=== PATIENT | female | born 1980 | race Caucasian/White ===

== ENCOUNTER 2024-11-02 10:46 | Outpatient (REF) | payer OTHER, SELFPAY ==
[2024-11-02 14:19] LABS: Hematocrit 37.7 % (37.0-47.0); Hemoglobin 13.1 g/dl (12.0-16.0); Mean Corpuscular HGB Conc 34.7 g/dl (31.0-35.0); Mean Corpuscular Hemoglobin 30.7 pg (27.0-33.0); Mean Corpuscular Volume 88.3 fL (80.0-98.0); NRBC Abs Auto 0.000 X10*3/uL (0.0-0.012); NRBC Pct Auto 0.0 /100WBC (0.0-0.2); Platelet Count 304 X10*3/uL (160-400); Red Blood Count 4.27 X10*6/uL (4.20-5.50); White Blood Count 7.6 X10*3/uL (4.8-10.8)
[2024-11-02 15:01] LABS: Microalbum/Creatinine Ratio Ur 6.5 ug/mg cr (<30)
[2024-11-02 15:24] LABS: Alanine Aminotransferase 11 U/L (0-31); Albumin Level 4.2 g/dL (3.5-5.0); Alkaline Phosphatase 53 U/L (39-117); Anion Gap 16 (12-20); Aspartate Amino Transferase 26 U/L (5-31); Blood Urea Nitrogen 8 mg/dL (9-16); Calcium 9.2 mg/dL (8.4-10.2); Carbon Dioxide 23 mmol/L (22-29); Chloride 105 mmol/L (96-108); Cholesterol 216 mg/dL (<200); Estimated Glomerular Filt Rate > 60; HDL Cholesterol 37 mg/dL (>40); Potassium 3.8 mmol/L (3.3-5.1); Sodium 140 mmol/L (135-145); Total Protein 7.8 g/dL (6.5-8.0); Triglycerides 86 mg/dL (<150)
[2024-11-02 15:28] LABS: Ferritin 295 ng/mL (10-250)
[2024-11-02 15:31] LABS: Hemoglobin A1C 115.1377 umol/L; Total Hemoglobin (HGBA1C) 3410.8238 umol/L
[2024-11-02 15:41] LABS: Folate 6.1 ng/mL (> or = 4.0); Vitamin B12 809 pg/mL (200-900)
== END 2024-11-02 10:47 | disposition home or self-care (01) ==
LOC: HO.WFDLDS 10:46
PROVIDERS: PCP Nurse Practitioner Family; Visit Provider Nurse Practitioner Family
DX: Z00.00 Encounter for general adult medical examination without abnormal findings (principal); Z76.89 Persons encountering health services in other specified circumstances; Z78.0 Asymptomatic menopausal state; J32.8 Other chronic sinusitis; C44.91 Basal cell carcinoma of skin, unspecified; D89.0 Polyclonal hypergammaglobulinemia; Z79.85 Long-term (current) use of injectable non-insulin antidiabetic drugs
CPT/HCPCS: 36415; 80053; 80061; 82043; 82306; 82570; 82607; 82728; 82746; 82784; 83036; 84443; 85027; 86364; 96127

== ENCOUNTER 2024-11-02 10:46 | Outpatient (AMB) | payer OTHER, SELFPAY ==
--- NOTE | 2024-11-02 10:48 | A.OFFPC_ITS ---
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 Intake Note: New patient to establish care and cpe Jump Roll Operator Required: No Allergies No Known Allergies Allergy (Verified 11/02/24 11:05) Medication List - Last Reconciled 11/02/24 by LAUREN Vasquez- semaglutide (weight loss) 0.25 mg subcut QWEEK Tobacco use date assessed: 11/02/24 Dental Screening Dental Screen Date: 11/02/24 Did you have a dental visit in the last 12 months?: No Did you have a dental problem in the last 6 months where you did not have access to dental care?: No Was dental information given to patient?: No HPI HPI Comments History of Present Illness Details 43 y/o F with elevated IgA, basal cell s kin ca, chronic sinusitis, chronic constipation s/p JUAN CARLOS, rectocle Social: , works as book keeper, has a boyfriend Health Maintenance Tdap 2023 Mammo 12/2024 [facility] Colon 2010 [facility] Specialist Derm MEDIA EXECUTIVE History of Present Illness - The patient is a 43-year-old female pr [facility]enting to [facility] No records - coming from [place], last visit about 2 years ago - Reports hx of elevated Immunoglobulin A (IgA) levels. No referral or work up for this. - Chronic sinusitis with frequent sinus infections. Has sx right now. Saw ENT in the past. - Constipation with up to three weeks wi thout bowel movement. - Baseline s/p rectocele - Post-hysterectomy weight gain 50 lbs; Using Semaglutide OTC Mar 2024; 30 lbs loss. Made aware i do not RX this and she should cont to buy OTC. - Sleep disturbances with difficulties f alling and staying asleep despite tiredness. - History of basal cell carcinoma excisi on four years ago. at [facility]. Has a lesion on L forehead she wants looked at. - Had colon around 2010; got cologaurd i n mail wonders if she should use this or not. Denies fhx of colon ca; unsure about last colon results. Review of Systems - General: Denies taking any current med ications except [id number]-zlztjjr supplements. - ENT: Reports chronic sinusitis. - Gastrointestinal: Reports constipation . - Dermatological: Reports history of ski n cancer. - Neurological: Reports sleep disturbanc es. - Allergy/Immunology: Denies known aller gies. Physical Exam General: Well developed, well nourished, in no acute distress. Appears stated age. Head: Normocephalic, atraumatic. Eyes: Pupils are equal, round and reactive to light and accommodation. Conjunctivae are clear. Vision grossly normal. Ears: TM intact and clear Nares: turbinates mild edematous, pale, + congestion, no sinus tenderness w palp Pharynx: clear Lungs: Clear to auscultation bilaterally. No rales, rhonchi or wheeze noted. Good air flow in all lira. Heart: Regular rate and rhythm. No murmurs, click, rubs or gallops are noted. Psych: Mood and affect appropriate. Results Pending Discussion Notes I discussed the patient's elevated Immunoglobulin A (IgA) levels and the previous lack of specialist referral. The chronic sinusitis was reviewed, and I informed the patient about our laboratory service for drawing necessary blood tests. There was a discussion about her continued skin lesion potentially needing dermatology follow-up. I educated her on the benefits and process of colonoscopy versus Cologuard in regards to colon cancer screening. Also, we discussed current constipation, obesity issues, and the lack of impact on sleep affecting her daily life. Transitioning health insurance concerns were also addressed, ensuring continuity of care at our facility. Patient was informed about our messaging system for direct communication and encouraged to access her health records promptly. Follow-up was advised to review lab results and overall review in two weeks. Patient was given time to ask questions. All questions were answered to their satisfaction. Assessment and Plan 1. Elevated Immunoglobulin A (IgA) - Obtain blood tests for IgA. - Follow-up in two weeks for results. 2. Chronic Sinusitis - Consider ENT consult if needed. 3. Constipation - Monitor dietary intake and bowel patte rns. 4. Skin Cancer (Basal Cell Carcinoma) - Refer to dermatology. 5. Obesity and Sleep Disturbance - Encourage weight management. - Supportive management for sleep. 6. Post-Hysterectomy Status - Noted ovaries retained; cervix status unclear. 7. Colon Cancer Screening - Requested colon report from [facility], will review and provide feed back at next visit Patient Instructions - Get blood work done today before dahlia sánchez. - Contact [facility] for fo llow-up. - Use the messaging geovanny to communicate f or any questions or concerns. - Return visit in two weeks for lab resu lts review. Consent Patient was informed and verbally consented to the use of an ambient scribe for clinic note documentation during this visit. Total time spent caring for the patient today was 45 minutes. This includes time spent before the visit reviewing the chart, time spent during the visit, and time spent after the visit on documentation, reviewing laboratory results, diagnostic imaging, medications, performing a medically necessary evaluation, counseling on diagnoses, care coordination, ordering appropriate tests, ordering appropriate medications, review of tests performed by other providers, reporting test results with the patient, communication with other healthcare providers. [facility] Medical History (Updated 11/02/24 @ 11:36 by LAUREN Vasquez-SNEHA) Anxiety and depression Headache High cholesterol Hx of mammogram (~2024) IBS (irritable bowel syndrome) Shingles Surgical History (Updated 11/02/24 @ 11:36 by LAUREN Vasquez-BC) H/O rectocele repair H/O: hysterectomy (~2016) History of cholecystectomy (~2020) Hx of colonoscopy (~2015) Previous section Family History (Updated 11/02/24 @ 11:07 by Emiliana Arias MA) Mother Asthma HTN (hypertension) High cholesterol Maternal Grandmother HTN (hypertension) High cholesterol Breast cancer Father Lung cancer Social History (Updated 11/02/24 @ 10:56 by Emiliana Arias MA) Household Members: Children Both parents involved: No Caregiver staying overnight: No Housing: House Are you a primary neonatal intensive care unit nurse to a significant other at home: No Do you presently have visiting nurse or other home services: No 75 years or older and lives alone: No Alcohol intake: current Alcohol intake frequency: a few times a month Patient Tobacco Use Status: Never used Tobacco e-Cigarette/Vaping Use: Never Used Second Hand Smoke Exposure: No Current occupational status: employed Current occupation: Book keeper Cognitive needs: No Hearing needs: No Vision needs: No Questionnaire PHQ-9 Over the last 2 weeks, how often have you been bothered by any of the following problems? 1. Little interest or pleasure in doing things: not at all 2. Feeling down, depressed, or hopeless: not at all 3. Trouble falling or staying asleep, or sleeping too much: nearly every day 4. Feeling tired or having little energy: more than half the days 5. Poor appetite or overeating: several days 6. Feeling bad about yourself - or that you are a failure or have let yourself or your family down: not at all 7. Trouble concentrating on things, such as reading the newspaper or watching television: not at all 8. Moving or speaking so slowly that other people could have noticed. Or the opposite - being so fidgety or restless that you have been moving around a lot more than usual: not at all 9. Thoughts that you would be better off or of hurting yourself in some way: not at all Total score: 6 Depression Screening Interpretation: Positive Depression Screening Follow-up: Existing condition and Community Mental Health Worker F/U Depression Screening Done: Yes 01846 - PHQ-9 Billing: Yes Source: Developed by Drs. Brady Quintanilla, Eneida Cloud, Miguel Newby and colleagues, with an educational hermann from [employer]. Thrive Questionnaire Date Thrive assessed: 11/02/24 I am a: Patient What is your living situation today?: I have a steady place to live Within the past 12 months, did the food you bought not last and you didn't have the money to get more?: Never true Within the past 12 months, did you worry whether your food would run out before you got money to buy more?: Never true Do you have trouble paying for medicines?: No Do you have trouble getting transportation to medical appointments?: No Do you have trouble paying your heating and electricity bill?: No Do you have trouble taking care of your child, family member or friend?: No Do you have trouble with day-to-day activities such as bathing, preparing meals, shopping, managing finances, etc.?: No Are you currently unemployed and looking for a job?: No Are you interested in more education?: No Please select the resources that you would like help with: None Currently or been in a relationship where the following occur: No concerns reported THRIVE Score: 0 AUDIT C Alcohol Use Questionnaire (AUDIT-C) 1. How often do you have a drink containing alcohol?: Monthly or less 2. How many drinks containing alcohol do you have on a typical day when you are drinking?: 1 or 2 3. How often do you have six or more drinks on one occasion?: Never Total Score: 1 Score Reviewed/Action Taken: Yes NALLELY-7 AMB Questionnaire NALLELY-7 Date NALLELY - 7 assessed: 11/02/24 Feeling nervous, anxious, or on edge: 0 = Not at all Not being able to stop or control worryin = Not at all Worrying too much about different things: 0 = Not at all Trouble relaxin = Not at all Being so restless that it is hard to sit still: 0 = Not at all Becoming easily annoyed or irritable: 0 = Not at all Feeling afraid as if something awful might happen: 0 = Not at all Total NALLELY-7 score (0-4 normal; 5-9 mild; 10-14 moderate; 15-21 severe): 0 Source: Developed by Drs. Brady Quintanilla, Eneida Cloud, Miguel Newby and colleagues, with an educational hermann from [employer]. NALLELY-7 Assessment Billing NALLELY-7 Assessment Tool: NALLELY-7 Assessment 16219 Physical exam (Primary Care) Vital Signs: Last Vital Signs Temp 97.2 F 11/02/24 10:53 Pulse 63 11/02/24 10:53 Resp 12 11/02/24 10:53 BP 102/66 11/02/24 10:53 Pulse Ox 98 11/02/24 10:53 Oxygen Delivery Method Room Air 11/02/24 10:53 BMI result Body Mass Index 26.6 Tobacco/Smoking Status: Tobacco use Status Tobacco use date assessed 11/02/24 11/02/24 10:55 Patient Tobacco Use Status Never used Tobacco 11/02/24 10:56 e-Cigarette/Vaping Use Never Used 11/02/24 10:56 PHQ-9: PHQ-9 Score PHQ-9: Total score 6 11/02/24 10:56 Depression Screening Interpretation: Positive Depression Screening Follow-up: Existing condition and Community Mental Health Worker F/U Thrive Assessment: Date of Thrive Assessment Date Thrive assessed 11/02/24 11/02/24 10:55 Currently or been in a relationship where the following occur: No concerns reported Coding Level of Care Code New Pt Level 4 (93076) Complex EM visit Add On G2211 Diagnoses Encounter to establish care with new provider Z76.89 Other chronic sinusitis J32.8 Sinusitis location: other Basal cell carcinoma (BCC), unspecified site C44.91 Basal cell carcinoma location: unspecified site Long-term (current) use of injectable non-insulin antidiabetic drugs Z79.85 Menopause Z78.0 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 Laboratory exam ordered as part of routine general medical examination Z00.00 Additional Codes NALLELY-7 Assessment Billing - NALLELY-7 Assessment Tool: NALLELY-7 Assessment 87009 ([id number]) PHQ-9 - 81680 - PHQ-9 Billing: Yes ([id number]) Assessment & Plan Assessment & Plan (1) Encounter to establish care with new provider: Code(s): Z76.89 - Persons encountering health services in other specified circumstances (2) Chronic sinusitis: Code(s): J32.9 - Chronic sinusitis, unspecified Category: Medical Qualifiers: Sinusitis location: other Qualified Code(s): J32.8 - Other chronic sinusitis (3) Basal cell carcinoma of skin: Code(s): C44.91 - Basal cell carcinoma of skin, unspecified Category: Medical Qualifiers: Basal cell carcinoma location: unspecified site Qualified Code(s): C44.91 - Basal cell carcinoma of skin, unspecified (4) Long-term (current) use of injectable non-insulin antidiabetic drugs: Comment: using GLP 1 for wt loss buying OTC advised to cont as i dont RX this Code(s): Z79.85 - Long-term (current) use of injectable non-insulin antidiabetic drugs Category: Medical (5) Menopause: Code(s): Z78.0 - Asymptomatic menopausal state Category: Medical (6) Polyclonal hypergammaglobulinemia: Comment: IG A Code(s): D89.0 - Polyclonal hypergammaglobulinemia Category: Medical (7) Laboratory exam ordered as part of routine general medical examination: Code(s): Z00.00 - Encounter for general adult medical examination without abnormal findings Category: Medical Plan . Orders: Orders Immunoglobulins,IgG IgA IgM Today J32.9 - Chronic sinusitis, unspecified, Z00.00 - Encounter for general adult medical examination without abnormal findings, Z78.0 - Asymptomatic menopausal state Transglutaminase IgA Today J32.9 - Chronic sinusitis, unspecified, Z00.00 - Encounter for general adult medical examination without abnormal findings, Z78.0 - Asymptomatic menopausal state Ferritin Today J32.9 - Chronic sinusitis, unspecified, Z00.00 - Encounter for general adult medical examination without abnormal findings, Z78.0 - Asymptomatic menopausal state Hemoglobin A1c Today J32.9 - Chronic sinusitis, unspecified, Z00.00 - Encounter for general adult medical examination without abnormal findings, Z78.0 - Asymptomatic menopausal state Lipid Panel Today J32.9 - Chronic sinusitis, unspecified, Z00.00 - Encounter for general adult medical examination without abnormal findings, Z78.0 - Asymptomatic menopausal state Vitamin B12 and Folate Today J32.9 - Chronic sinusitis, unspecified, Z00.00 - Encounter for general adult medical examination without abnormal findings, Z78.0 - Asymptomatic menopausal state Complete Blood Count no Diff Today J32.9 - Chronic sinusitis, unspecified, Z00.00 - Encounter for general adult medical examination without abnormal findings, Z78.0 - Asymptomatic menopausal state Comprehensive Met. Panel Today J32.9 - Chronic sinusitis, unspecified, Z00.00 - Encounter for general adult medical examination without abnormal findings, Z78.0 - Asymptomatic menopausal state Microalbumin, Random (w Creat) Today J32.9 - Chronic sinusitis, unspecified, Z00.00 - Encounter for general adult medical examination without abnormal findings, Z78.0 - Asymptomatic menopausal state TSH reflex Free T4 Today J32.9 - Chronic sinusitis, unspecified, Z00.00 - Encounter for general adult medical examination without abnormal findings, Z78.0 - Asymptomatic menopausal state Vitamin D 25-OH Total Today J32.9 - Chronic sinusitis, unspecified, Z00.00 - Encounter for general adult medical examination without abnormal findings, Z78.0 - Asymptomatic menopausal state Referrals Dermatology Referral C44.91 - Basal cell carcinoma of skin, unspecified Patient Instructions: Walk-In Care (Urgent Care): We Make it Easy Walk-in for urgent medical issues such as: ? Seasonal Allergies ? Insect Bites ? Cough ? Diarrhea ? Acute Asthma Attacks ? Back, Knee or Joint Pain ? Ear Infection ? Fever without a Rash ? Headaches ? Nausea ? [place] Eye, Rash or Skin Irritation ? Sore Throat ? Sports Physicals ? Vomiting Most insurances are accepted. Patients do not need to be part of the [facility] to seek care at the walk-in clinic. Locations [address] , [place] [address] ? [phone] [facility] Walk-In Care in [place] provides services to ages 18 and over. Open Friday-Friday: 7 a.m. to 5 p.m. and Friday: 9 a.m. to 3 p.m.* *Hours may vary due to staffing availability. To confirm Walk-In Care hours in [place], please call [phone]. [address] [place] [address] ? [phone] [facility] Walk-In Care in [place] provides services to ages 12 and over. Open Friday-Friday: 8 a.m. to 5 p.m. Hours may vary due to staffing availability. To confirm Walk-In Care hours in [place], please call [phone]. LABORATORY SERVICES: [facility] Lab ? Primary Location [address] [place] [address] Friday through Friday 6:00 AM ? 5:00 PM Friday 7:00 AM ? 11:00 AM* [phone] The [facility] Lab is centrally located near the front entrance of the [facility] for easy outpatient access. Convenient parking is provided for outpatients. *Hours may vary due to staffing availability. To confirm Laboratory hours for any location, please call [phone]. Offsite Location For your convenience, we offer offsite laboratory draw stations at the following locations: [address] [place] [address] ? [facility] [address], [address] Friday through Friday 7:30 AM ? 1:00 PM* [phone] *Hours may vary due to staffing availability. To confirm Laboratory hours for any location, please call [phone]. [place] ? [address] Friday through Friday 6:00 AM ? 3:30 PM* Friday 6:30 AM ? 3 PM* [phone] *Hours may vary due to staffing availability. To confirm Laboratory hours for a [place] location, please call [phone]. [address] [facility] Friday through Friday 7:30 AM ? 4:00 PM* [phone] *Hours may vary due to staffing availability. To confirm Laboratory hours for any location, please call [phone]. [address] [facility] Friday through 9:00 AM ? 4:00 PM* *Hours may vary due to staffing availability. To confirm Laboratory hours for any location, please call [phone]. Appointments are not necessary. Walk-ins are welcome. Like all the departments throughout the [facility], our Lab undergoes frequent reviews to ensure the quality and accuracy of test results, and our staff takes special pride in its status as a nationally accredited facility. Patient Portal: [facility] ONE PATIENT. ONE RECORD. BETTER CARE. The [facility] has a fully integrated, cutting- edge mobile electronic health information system that has revolutionized the way we care for our patients and manage our organization. This system improves communication and coordination enabling us to provide safe, higher-quality care, and an overall positive experience for staff and patients. Our first priority, as always, is to deliver the highest quality care possible. The system is running in the background supporting that priority. This portal is for all [facility] and [facility] services and practices. If you are experiencing any technical difficulties with enrolling or logging into the Patient Portal please complete the [facility] Patient Portal Technical Support Form. [facility] and [facility] now offers a new secure on-line interactive tool for patients to review their health information ? ?Patient Portal. This interactive web portal will enable patients and their families to take an active role in their care by providing easy, secure access to their health information via the internet. The Patient Portal provides patients with instant access to their health information, including laboratory results, medications, allergies, demographic information, visit history, and more. In addition to managing their own care, parents and health care proxies with authorized consent will appreciate the ability to access the records of those individuals for whom they provide care. Please note: if you wish to gain access (Proxy) to another patient?s portal, you will be required to come to the Medical Records Department in person at [facility]. Both the patient giving proxy access and the proxy will need to provide photo identification and complete the appropriate authorization. The Patient Portal also allows track their appointments online. The [facility] Patient Portal also saves patients time by allowing them to submit updates to their demographic and contact information prior to their visits. Portal email notifications will also alert patients to any new activity on their portal, such as test results and new appointments. In order to initially enroll in the [facility] Patient Portal, you will need to enter some required information including the following: * your [facility] Medical Record number * your personal home email address * name * date of Please note: In order to enroll in the [facility] Patient Portal, we need to have your email address on file in your electronic medical record. ?The email address needs to be specific for one person (yourself) in order for your Portal enrollment to be successful. ?You can update your email address in person with our Registration staff when you are registering for a hospital visit. ?Otherwise, you will need to come to the Health Information Management (Medical Records) Department at [facility]. ?We are open from Friday ? Friday from 7:30 a.m. ? 4:30 p.m. ?You will be required to present a photo id. Once you have successfully enrolled in the Patient Portal, you will receive a one-time user id and password for the Portal, sent to your email address. ?This will allow you to log into the Patient Portal within 99 hrs and reset your own logon id and password, and define personal security questions. ?Once your permanent login and password have been set, you can log into the [facility] Patient Portal at any time via the blue button above or from the Portal Logon button on any page of the [facility] website. [facility] and [facility] encourage all of our patients to enroll in Patient Portal as it presents a valuable opportunity for patients and their families to actively participate in their care and stay healthy Welcome to [facility]. ?We look forward to working with you.
[2024-11-02 10:53] VITALS: BP 102/66; PULSE 63; RESP 12; TEMP 36.2; O2SAT 98; BMI 26.6
--- OUTSIDE RECORDS SUMMARY | 2024-11-02 11:38 | XMS_ITS ---
Author Name [facility] Organization Unknown Encounters Encounter Type Encounter Reason Primary Diagnosis Location Date Ambulatory Physicians [facility], [facility] 07/04/2021 Care Team Organization Name Specialty Phone Email Start Date End [facility] te [facility], [facility] 07/04/2021 10/27/2023 Physicians [facility], [facility] 07/04/2021 07/04/2021
== END 2024-11-02 11:28 | disposition home or self-care (01) ==
LOC: HO.HMCFM 10:46
PROVIDERS: PCP Nurse Practitioner Family; Visit Provider Nurse Practitioner Family
DX: Z76.89 Persons encountering health services in other specified circumstances (principal); J32.8 Other chronic sinusitis; C44.91 Basal cell carcinoma of skin, unspecified; Z79.85 Long-term (current) use of injectable non-insulin antidiabetic drugs; Z78.0 Asymptomatic menopausal state; D89.0 Polyclonal hypergammaglobulinemia; Z00.00 Encounter for general adult medical examination without abnormal findings

== ENCOUNTER 2024-11-05 07:55 | Outpatient (REF) | payer OTHER, SELFPAY ==
[2024-11-05 12:05] LABS: Appearance Urine Turbid; Glucose Urine UA Negative (Negative); PH 5.5 (5.0-9.0); Specific Gravity - Urine 1.025 (1.005-1.025); UMIC TRIGGER UACC YES
[2024-11-08 20:38] LABS: Prot Elec - Albumin 3.9 g/dL (3.8-4.8); Prot Elec - Alpha1 0.3 g/dL (0.2-0.3); Prot Elec - Alpha2 0.8 g/dL (0.5-0.9); Prot Elec - Beta 1 0.4 g/dL (0.4-0.6); Prot Elec - Beta 2 0.7 g/dL (0.2-0.5); Prot Elec - Gamma 1.2 g/dL (0.8-1.7); Prot Elec - Total Protein 7.3 g/dL (6.1-8.1)
== END 2024-11-05 07:56 | disposition home or self-care (01) ==
LOC: HO.WFDLDS 07:55
PROVIDERS: Visit Provider Nurse Practitioner Family
DX: D89.0 Polyclonal hypergammaglobulinemia (principal); R30.0 Dysuria
CPT/HCPCS: 36415; 81001; 81003; 84165

== ENCOUNTER 2024-11-29 11:17 | Outpatient (AMB) | payer OTHER, SELFPAY ==
--- NOTE | 2024-11-29 11:18 | A.OFFPC_ITS ---
Vital Signs 11/29/24 11:22 Height 5 ft 2 in Weight 139 lb 4 oz BMI 25.5 BP 118/67 Blood Pressure Location Lt brachial Position Sitting Respiration 12 Pulse 72 Pulse Source Pulse Oximeter Temp 97.4 F Temp Source Oral Pulse Oximetry (%) 98 Oxygen Delivery Method Room Air Intake Visit Reasons: 2 weeks FU labs/records 30 min Intake Note: Follow up review labs. Patient had covid 5 weeks ago and patient c/o not being able to eat and also body aches still going on. Xray Tech Required: No Allergies No Known Allergies Allergy (Verified 11/29/24 11:19) Medication List - Last Reconciled 11/29/24 by LAUREN Vasquez-SNEHA semaglutide (weight loss) 0.25 mg subcut QWEEK Tobacco use date assessed: 11/29/24 Dental Screening Dental Screen Date: 11/29/24 Did you have a dental visit in the last 12 months?: Yes Did you have a dental problem in the last 6 months where you did not have access to dental care?: No Was dental information given to patient?: Patient has dentist HPI HPI Comments History of Present Illness Details 43 y/o F with elevated IgA, basal cell s kin ca, chronic sinusitis, chronic constipation s/p JUAN CARLOS, rectocle Social: , works as book keeper, 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 Reports sx started 5 mo ago after covid. Skin generally speaking hurts. Did not make appt w derm yet; has info. Declined flu shot. LDL high, HDL low. Ok w/ starting statin. Review of Systems - General: Denies taking any current med ications except [id number]-lpeuwvv supplements. - ENT: Reports chronic sinusitis. - Gastrointestinal: Reports constipation . - Dermatological: Reports history of ski n cancer. - Neurological: Reports sleep disturbanc es. - Allergy/Immunology: Denies known aller gies. Physical Exam General: Well developed, well nourished, in no acute distress. Appears stated age. Head: Normocephalic, atraumatic. Eyes: Pupils are equal, round and reactive to light and accommodation. Conjunctivae are clear. Vision grossly normal. Abd soft normoactive bs x 4, tender generally speaking, without rebound Lungs: Clear to auscultation bilaterally. No rales, rhonchi or wheeze noted. Good air flow in all lira. Heart: Regular rate and rhythm. No murmurs, click, rubs or gallops are noted. Psych: Mood and affect appropriate. Results see below I discussed the significance of the lab findings with the patient, including elevated IgA, proteinuria, and high cholesterol levels, along with their possible implications such as kidney issues or chronic inflammation. I recommended a nephrology consultation to explore the cause of proteinuria and concurrently investigate IgA levels. Due to the elevated cholesterol levels, we discussed options for managing hyperlipidemia, including the introduction of atorvastatin with attention to familial risk factors. Regarding the post-COVID GI symptoms, I proposed a learning support resource room teacher consultation to address appetite changes and gastrointestinal discomfort. The potential side effects of COVID and medication on these symptoms were considered. The patient was advised to pursue proactive scheduling and communication with upcoming referrals, especially in light of the upcoming insurance change. I emphasized the importance of maintaining regular follow-ups and making lifestyle adjustments to support health management. Patient was given time to ask questions. All questions were answered to their satisfaction. Plan: Declined flu Refer to Renal GI referral Make Derm appt start ator 20mg QD for cholesterol Repeat labs before next visit, 3-4 mo for CPE, sooner as needed Total time spent caring for the patient today was 40 minutes. This includes time spent before the visit reviewing the chart, time spent during the visit, and time spent after the visit on documentation, reviewing laboratory results, diagnostic imaging, medications, performing a medically necessary evaluation, counseling on diagnoses, care coordination, ordering appropriate tests, ordering appropriate medications, review of tests performed by other providers, reporting test results with the patient, communication with other healthcare providers. [facility]MERLY [facility], [facility] Medical History (Updated 11/29/24 @ 12:26 by LAUREN Vasquez-SNEHA) Anxiety and depression Headache High cholesterol Hx of mammogram (~2024) IBS (irritable bowel syndrome) Shingles Surgical History (Updated 11/02/24 @ 11:36 [facility] H/O rectocele repair H/O: hysterectomy (~2016) History of cholecystectomy (~2020) Hx of colonoscopy (~2015) Previous section Family History (Updated 11/02/24 @ 11:07 by Emiliana Arias MA) Mother Asthma HTN (hypertension) High cholesterol Maternal Grandmother HTN (hypertension) High cholesterol Breast cancer Father Lung cancer Social History (Updated 11/02/24 @ 10:56 by Emiliana Arias MA) Household Members: Children Both parents involved: No Caregiver staying overnight: No Housing: House Are you a primary home care assistant to a significant other at home: No Do you presently have visiting nurse or other home services: No 75 years or older and lives alone: No Alcohol intake: current Alcohol intake frequency: a few times a month Patient Tobacco Use Status: Never used Tobacco e-Cigarette/Vaping Use: Never Used Second Hand Smoke Exposure: No Current occupational status: employed Current occupation: Book keeper Cognitive needs: No Hearing needs: No Vision needs: No Questionnaire PHQ-9 Over the last 2 weeks, how often have you been bothered by any of the following problems? 1. Little interest or pleasure in doing things: not at all 2. Feeling down, depressed, or hopeless: not at all 3. Trouble falling or staying asleep, or sleeping too much: not at all 4. Feeling tired or having little energy: not at all 5. Poor appetite or overeating: not at all 6. Feeling bad about yourself - or that you are a failure or have let yourself or your family down: not at all 7. Trouble concentrating on things, such as reading the newspaper or watching television: not at all 8. Moving or speaking so slowly that other people could have noticed. Or the opp osite - being so fidgety or restless that you have been moving around a lot more than usual: not at all 9. Thoughts that you would be better off or of hurting yourself in some way: not at all Total score: 0 Depression Screening Interpretation: Negative Depression Screening Done: Yes 94515 - PHQ-9 Billing: Yes Source: Developed by Drs. Brady Quintanilla, Eneida Cloud, Miguel Newby and colleagues, with an educational hermann from [employer]. Thrive Questionnaire Date Thrive assessed: 11/29/24 I am a: Patient What is your living situation today?: I have a steady place to live Within the past 12 months, did the food you bought not last and you didn't have the money to get more?: Never true Within the past 12 months, did you worry whether your food would run out before you got money to buy more?: Never true Do you have trouble paying for medicines?: No Do you have trouble getting transportation to medical appointments?: No Do you have trouble paying your heating and electricity bill?: No Do you have trouble taking care of your child, family member or friend?: No Do you have trouble with day-to-day activities such as bathing, preparing meals, shopping, managing finances, etc.?: No Are you currently unemployed and looking for a job?: No Are you interested in more education?: No Please select the resources that you would like help with: None Currently or been in a relationship where the following occur: No concerns reported THRIVE Score: 0 NALLELY-7 AMB Questionnaire NALLELY-7 Date NALLELY - 7 assessed: 11/29/24 Feeling nervous, anxious, or on edge: 0 = Not at all Not being able to stop or control worryin = Not at all Worrying too much about different things: 0 = Not at all Trouble relaxin = Not at all Being so restless that it is hard to sit still: 0 = Not at all Becoming easily annoyed or irritable: 0 = Not at all Feeling afraid as if something awful might happen: 0 = Not at all Total NALLELY-7 score (0-4 normal; 5-9 mild; 10-14 moderate; 15-21 severe): 0 Source: Developed by Drs. Brady Quintanilla, Eneida Cloud, Miguel Newby and colleagues, with an educational hermann from [employer]. NALLELY-7 Assessment Billing NALLELY-7 Assessment Tool: NALLELY-7 Assessment 94307 Physical exam (Primary Care) Vital Signs: Last Vital Signs Temp 97.4 F 11/29/24 11:22 Pulse 72 11/29/24 11:22 Resp 12 11/29/24 11:22 BP 118/67 11/29/24 11:22 Pulse Ox 98 11/29/24 11:22 Oxygen Delivery Method Room Air 11/29/24 11:22 BMI result Body Mass Index 25.5 Tobacco/Smoking Status: Tobacco use Status Tobacco use date assessed 11/29/24 11/29/24 11:23 Patient Tobacco Use Status Never used Tobacco 11/29/24 11:19 e-Cigarette/Vaping Use Never Used 11/29/24 11:19 PHQ-9: PHQ-9 Score PHQ-9: Total score 0 11/29/24 11:19 Depression Screening Interpretation: Negative Thrive Assessment: Date of Thrive Assessment Date Thrive assessed 11/29/24 11/29/24 11:19 Currently or been in a relationship where the following occur: No concerns reported Results Reviewed Results Reviewed: Laboratory 11/02/24 Result Units Range Interpretation Provider Comments White Blood Count 7.6 X10*3/uL (4.8-10.8) Red Blood Count 4.27 X10*6/uL (4.20-5.50) Hemoglobin 13.1 g/dl (12.0-16.0) Hematocrit 37.7 % (37.0-47.0) Mean Corpuscular Volume 88.3 fL (80.0-98.0) Mean Corpuscular Hemoglobin 30.7 pg (27.0-33.0) Mean Corpuscular Hemoglobin Concent 34.7 g/dl (31.0-35.0) Red Cell Distribution Width 11.9 % (11.0-16.0) Platelet Count 304 X10*3/uL (160-400) Mean Platelet Volume 8.9 fL (9.4-12.3) Low Nucleated RBC Absolute Count (auto) 0.000 X10*3/uL (0.0-0.012) Nucleated Red Blood Cells % (auto) 0.0 /100WBC (0.0-0.2) Sodium Level 140 mmol/L (135-145) Potassium Level 3.8 mmol/L (3.3-5.1) Chloride Level 105 mmol/L (96-108) Carbon Dioxide Level 23 mmol/L (22-29) Anion Gap 16 (12-20) Blood Urea Nitrogen 8 mg/dL (9-16) Low Creatinine 0.82 mg/dL (0.5-1.4) Estimated Creatinine Clearance Calc Not Reportable Estimat Glomerular Filtration Rate > 60 Random Glucose 79 mg/dL (60-115) Estimated Average Glucose 103 mg/dL Hemoglobin A1c Percent 5.2 % (<6.0) Calcium Level 9.2 mg/dL (8.4-10.2) Ferritin 295 ng/mL (10-250) High Total Bilirubin 0.5 mg/dL (0.0-1.0) Aspartate Amino Transf (AST/SGOT) 26 U/L (5-31) Alanine Aminotransferase (ALT/SGPT) 11 U/L (0-31) Alkaline Phosphatase 53 U/L (39-117) Total Protein 7.8 g/dL (6.5-8.0) Albumin 4.2 g/dL (3.5-5.0) Triglycerides Level 86 mg/dL (<150) Cholesterol Level 216 mg/dL (<200) High LDL Cholesterol, Calculated 162 mg/dL (<100) High HDL Cholesterol 37 mg/dL (>40) Low Vitamin B12 Level 809 pg/mL (200-900) 25-Hydroxy Vitamin D Total 33.2 ng/mL (>30) Folate 6.1 ng/mL (> or = 4.0) Thyroid Stimulating Hormone (TSH) 0.88 uIU/mL (0.32-4.0) Urine Creatinine 440.22 mg/dL Urine Microalbumin 29.0 mg/L Urine Microalbumin/Creatinine Ratio 6.5 ug/mg cr (<30) Immunoglobulin G Total 1153 mg/dL (600-1640) Immunoglobulin A Total 539 mg/dL (47-310) High Immunoglobulin M 123 mg/dL (50-300) Tissue Transglutaminase IgA Ab <1.0 U/mL Laboratory Result Units Range Interpretation Provider Comments Total Protein (PEP) 7.3 g/dL (6.1-8.1) Albumin (PEP) 3.9 g/dL (3.8-4.8) Csrgv-2-Vsbecqtad 0.3 g/dL (0.2-0.3) Elbvy-4-Zxuortimd 0.8 g/dL (0.5-0.9) Lxud-4-Jzlslmue 0.4 g/dL (0.4-0.6) Wnkq-2-Eongckse 0.7 g/dL (0.2-0.5) High Gamma Globulins 1.2 g/dL (0.8-1.7) PEP Abnormal Protein Band 1 SEE NOTE g/dL (NONE DETECTED) PEP Abnormal Protein Band 2 TNP PEP Abnormal Protein Band 3 TNP Protein Electrophoresis Interpret SEE NOTE Urine Color Dark Yellow Urine Appearance Turbid Urine pH 5.5 (5.0-9.0) Urine Specific [place] 1.025 (1.005-1.025) Urine Protein 30 (1+) mg/dL (Neg-Trace) High Urine Glucose (UA) Negative mg/dL (Negative) Urine Ketones Trace mg/dL (Negative) Urine Blood Negative (Negative) Urine Nitrite Negative (Negative) Urine Leukocyte Esterase Trace (Negative) High Urine RBC 0-2 /HPF (0-2) Urine WBC 0-5 /HPF (0-5) Urine Squamous Epithelial Cells 3-5 /HPF (0-2) Urine Bacteria None Seen (None Seen) Urine Hyaline Casts 11-20 /LPF (0-2) Coding Level of Care Code Est Pt Level 5 (61671) Complex EM visit Add On G2211 Diagnoses 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 Elevated ferritin R79.89 Early satiety R68.81 Change in bowel habit R19.4 Abdominal pain R10.9 HLD (hyperlipidemia) E78.5 Additional Codes NALLELY-7 Assessment Billing - NALLELY-7 Assessment Tool: NALLELY-7 Assessment 67379 ([id number]) PHQ-9 - 94747 - PHQ-9 Billing: Yes ([id number]) Assessment & Plan Assessment & Plan (1) Polyclonal hypergammaglobulinemia: Comment: IG A Code(s): D89.0 - Polyclonal hypergammaglobulinemia Category: Medical (2) Proteinuria: Code(s): R80.9 - Proteinuria, unspecified Category: Medical (3) Hx of renal calculi: Code(s): Z87.442 - Personal history of urinary calculi Category: Medical (4) Influenza vaccination declined: Code(s): Z28.21 - Immunization not carried out because of patient refusal Category: Medical (5) Elevated ferritin: Code(s): R79.89 - Other specified abnormal findings of blood chemistry Category: Medical (6) Early satiety: Code(s): R68.81 - Early satiety Category: Medical (7) Change in bowel habit: Code(s): R19.4 - Change in bowel habit Category: Medical (8) Abdominal pain: Code(s): R10.9 - Unspecified abdominal pain Category: Medical (9) HLD (hyperlipidemia): Code(s): E78.5 - Hyperlipidemia, unspecified Category: Medical Plan . Orders: Orders Lipid Panel 3 Months E78.5 - Hyperlipidemia, unspecified, R79.89 - Other spec ified abnormal findings of blood chemistry Ferritin 3 Months R79.89 - Other specified abnormal findings of blood chemistry Referrals Nephrology Referral D89.0 - Polyclonal hypergammaglobulinemia, R79.89 - Other specified abnormal findings of blood chemistry, R80.9 - Proteinuria, unspecified, Z87.442 - Personal history of urinary calculi Gastroenterology Referral R10.9 - Unspecified abdominal pain, R19.4 - Change in bowel habit, R68.81 - Early satiety Medications: New atorvastatin (Lipitor) 20 mg PO BEDTIME 90 tabs 2RF
[2024-11-29 11:22] VITALS: BP 118/67; PULSE 72; RESP 12; TEMP 36.3; O2SAT 98; BMI 25.5
== END 2024-11-29 12:01 | disposition home or self-care (01) ==
LOC: HO.HMCFM 11:18
PROVIDERS: PCP Nurse Practitioner Family; Visit Provider Nurse Practitioner Family
DX: D89.0 Polyclonal hypergammaglobulinemia (principal); R80.9 Proteinuria, unspecified; Z87.442 Personal history of urinary calculi; Z28.21 Immunization not carried out because of patient refusal; R79.89 Other specified abnormal findings of blood chemistry; R68.81 Early satiety; R19.4 Change in bowel habit; R10.9 Unspecified abdominal pain; E78.5 Hyperlipidemia, unspecified

== ENCOUNTER → 2024-11-29 11:17 | Outpatient (BNVA) | payer OTHER, SELFPAY | PROVIDERS: PCP Nurse Practitioner Family; Visit Provider Nurse Practitioner Family | DX: D89.0 Polyclonal hypergammaglobulinemia (principal); R80.9 Proteinuria, unspecified; R79.89 Other specified abnormal findings of blood chemistry; R68.81 Early satiety; R19.4 Change in bowel habit; R10.9 Unspecified abdominal pain; E78.5 Hyperlipidemia, unspecified; Z87.442 Personal history of urinary calculi | CPT/HCPCS: 96127 ==

== ENCOUNTER 2024-12-07 14:02 | Outpatient (AMB) | payer OTHER, SELFPAY ==
[2024-12-07 14:06] VITALS: BP 88/68; PULSE 85; O2SAT 98; BMI 25.1
--- NOTE | 2024-12-07 14:06 | HO.NEPHOV ---
Vital Signs 12/07/24 14:06 Height 5 ft 2 in Weight 137 lb BMI 25.1 BP 88/68 L Blood Pressure Location Lt brachial Position Sitting Pulse 85 Pulse Source Pulse Oximeter Pulse Oximetry (%) 98 Oxygen Delivery Method Room Air Intake Visit Reasons: INP: URGENT Proteinuria,Personal history of urinar Public Health Officer Required: No Accompanied by: Boyfriend Allergies No Known Allergies Allergy (Verified 12/07/24 14:08) Medication List - Last Reconciled 12/07/24 by Abdias Sifuentes MD atorvastatin (Lipitor) 20 mg PO BEDTIME semaglutide (weight loss) 0.25 mg subcut QWEEK HPI Comments Details: Marge is a pleasant 43-year-old female presenting with elevated Immunoglobulin A (IgA) and concerns regarding kidney function. - Elevated IgA identified two years ago - h/o Chronic sinusitis with frequent infections and deviated septum. - Underwent Emergency gallbladder surgery for gallstones causing pancreatitis four to five years ago. - History of constipation, with rectocele surgery, and recent diarrhea episodes. - Recurrent kidney stones, previously linked to Topamax for migraines. - Hypercholesterolemia, recently started atorvastatin. - h/o Low blood pressure, typically asymptomatic. - Xgof-SPVAR-13 symptoms include nausea and appetite changes. No specific skin lesions or rash. No specific skin lesions or rash. No joint pain swelling. No gross hematuria She has lost significant weight. She is on semaglutide. Patient Instructions - Increase fluid intake, especially water, to help with kidney health and overall well-being. - Follow up with a expansion joint builder for evaluation of gastrointestinal symptoms. - Monitor response to atorvastatin for cholesterol management. - Return for follow-up in four weeks to review test results and progress. [facility] Medical History (Updated 11/29/24 @ 12:26 by Karen Rick, [facility]) Shingles Anxiety and depression Headache IBS (irritable bowel syndrome) High cholesterol Hx of mammogram (~2024) Surgical History H/O rectocele repair History of cholecystectomy (~2020) H/O: hysterectomy (~2016) Previous section Hx of colonoscopy (~2015) Family History Mother Asthma HTN (hypertension) High cholesterol Maternal Grandmother HTN (hypertension) High cholesterol Breast cancer Father Lung cancer Social History Household Members: Children Both parents involved: No Caregiver staying overnight: No Housing: House Are you a primary grounds caretaker to a significant other at home: No Do you presently have visiting nurse or other home services: No 75 years or older and lives alone: No Alcohol intake: current Alcohol intake frequency: a few times a month Patient Tobacco Use Status: Never used Tobacco e-Cigarette/Vaping Use: Never Used Second Hand Smoke Exposure: No Current occupational status: employed Current occupation: Book keeper Cognitive needs: No Hearing needs: No Vision needs: No Review of Systems Const Denies fever(s) and Reports weight loss Card Denies chest pain Resp Denies cough and Denies hemoptysis GI Denies abdominal pain, Denies diarrhea and Denies nausea Neuro Denies focal weakness Physical Exam Vital Signs: Last Vital Signs Pulse 85 12/07/24 14:06 BP 88/68 L 12/07/24 14:06 Pulse Ox 98 12/07/24 14:06 Oxygen Delivery Method Room Air 12/07/24 14:06 BMI result Body Mass Index 25.1 Const General: comfortable; No acute distress Orientation/consciousness: patient oriented x3 Eyes General: appearance normal, both eyes and all related structures Visual Jewell: normal visual jewell by confrontation Neck Neck: Yes supple and Yes no JVD Resp Effort & Inspection: normal respiratory effort and respiratory effort not decreased Cardio Palpation: no palpable S3 and no palpable S4 Heart sounds: no rubs GI Inspection: Yes normal to inspection Palpation (GI): Soft to palpation Percussion: Yes normal to percussion Auscultation: normal bowel sounds General: Yes no CVA tenderness Back/Spine/Pelvis Back: no CVA tenderness Skin General skin exam: no petechiae and no purpura Neuro General: patient oriented x3 and no focal motor deficits Extrem General: No clubbing and No edema Results Reviewed Nephrology Results: Hgb, (12.0-16.0) 13.1 g/dl 11/02/24 WBC, (4.8-10.8) 7.6 X10*3/uL 11/02/24 Plt Count, (160-400) 304 X10*3/uL 11/02/24 Sodium, (135-145) 140 mmol/L 11/02/24 Potassium, (3.3-5.1) 3.8 mmol/L 11/02/24 Chloride, (96-108) 105 mmol/L 11/02/24 Carbon Dioxide, (22-29) 23 mmol/L 11/02/24 BUN, (9-16) 8 mg/dL L 11/02/24 Creatinine, (0.5-1.4) 0.82 mg/dL 11/02/24 Calcium, (8.4-10.2) 9.2 mg/dL 11/02/24 Urine Protein, (Neg-Trace) 30 (1+) mg/dL H 11/05/24 Urine Creatinine 440.22 mg/dL 11/02/24 Assessment & Plan Assessment & Plan (1) HLD (hyperlipidemia): Code(s): E78.5 - Hyperlipidemia, unspecified Category: Medical (2) Hx of renal calculi: Code(s): Z87.442 - Personal history of urinary calculi Category: Medical (3) Proteinuria: Code(s): R80.9 - Proteinuria, unspecified Category: Medical Plan Elevated Immunoglobulin A (Iga) - mild elevation in IgA. Ferritin is also elevated marginally. Check urine immunofixation along with urine protein creatinine ratio. Needs GI evaluation At present renal function is normal. h/o. Kidney Stones - Kidney ultrasound for follow-up Increase p.o. fluid intake Low Blood Pressure - Asymptomatic, we will check cortisol level for completion Orders: Orders Creatinine Urine Today E78.5 - Hyperlipidemia, unspecified, R80.9 - Proteinuria, unspecified, Z87.442 - Personal history of urinary calculi US renal BI Today E78.5 - Hyperlipidemia, unspecified, R80.9 - Proteinuria, unspecified, Z87.442 - Personal history of urinary calculi TRACEE Reflex Titer and Pattern Today E78.5 - Hyperlipidemia, unspecified, R80.9 - Proteinuria, unspecified, Z87.442 - Personal history of urinary calculi Neutrophil Cytoplasma Ab Today E78.5 - Hyperlipidemia, unspecified, R80.9 - Proteinuria, unspecified, Z87.442 - Personal history of urinary calculi Immunofixation Pnl, Serum Today E78.5 - Hyperlipidemia, unspecified, R80.9 - Proteinuria, unspecified, Z87.442 - Personal history of urinary calculi Immunoglobulin A Today E78.5 - Hyperlipidemia, unspecified, R80.9 - Proteinuria, unspecified, Z87.442 - Personal history of urinary calculi Comprehensive Met. Panel Today E78.5 - Hyperlipidemia, unspecified, R80.9 - Proteinuria, unspecified, Z87.442 - Personal history of urinary calculi Cortisol, Free Today E78.5 - Hyperlipidemia, unspecified, R80.9 - Proteinuria, unspecified, Z87.442 - Personal history of urinary calculi Total Protein Urine Random Today E78.5 - Hyperlipidemia, unspecified, R80.9 - Proteinuria, unspecified, Z87.442 - Personal history of urinary calculi UA and rflx microscopic Today E78.5 - Hyperlipidemia, unspecified, R80.9 - Proteinuria, unspecified, Z87.442 - Personal history of urinary calculi Immunofixation, Random Urine Today E78.5 - Hyperlipidemia, unspecified, R80.9 - Proteinuria, unspecified, Z87.442 - Personal history of urinary calculi Coding Level of Care Code New Pt Level 4 (23781) Diagnoses HLD (hyperlipidemia) E78.5 Hx of renal calculi Z87.442 Proteinuria R80.9
== END 2024-12-07 14:34 | disposition home or self-care (01) ==
LOC: HO.HKA 14:03
PROVIDERS: PCP Nurse Practitioner Family; Referring Provider Nurse Practitioner Family; Visit Provider Internal Medicine Hypertension Specialist
DX: E78.5 Hyperlipidemia, unspecified (principal); Z87.442 Personal history of urinary calculi; R80.9 Proteinuria, unspecified
CPT/HCPCS: 99204

== ENCOUNTER 2024-12-18 09:02 | Outpatient (REF) | payer OTHER, SELFPAY ==
[2024-12-18 11:04] LABS: Appearance Urine Clear; Glucose Urine UA Negative (Negative); PH 6.0 (5.0-9.0); Specific Gravity - Urine 1.010 (1.005-1.025); UMIC TRIGGER UA YES
[2024-12-18 11:36] LABS: Total Protein Urine Random < 7 mg/dL (<12)
[2024-12-18 12:16] LABS: Alanine Aminotransferase 16 U/L (0-31); Albumin Level 4.2 g/dL (3.5-5.0); Alkaline Phosphatase 57 U/L (39-117); Anion Gap 13 (12-20); Aspartate Amino Transferase 18 U/L (5-31); Blood Urea Nitrogen 5 mg/dL (9-16); Calcium 9.4 mg/dL (8.4-10.2); Carbon Dioxide 27 mmol/L (22-29); Chloride 106 mmol/L (96-108); Estimated Glomerular Filt Rate > 60; Potassium 3.4 mmol/L (3.3-5.1); Sodium 143 mmol/L (135-145); Total Protein 7.2 g/dL (6.5-8.0)
[2024-12-20 20:53] LABS: Immunoglobulin A 535 mg/dL (47-310)
[2024-12-22 13:03] LABS: Neutrophil Cyto Ab Screen NEGATIVE (NEGATIVE)
[2024-12-24 09:44] LABS: Anti Nuclear Antibody Screen NEGATIVE (NEGATIVE)
[2024-12-31 21:04] LABS: Cortisol, Free 0.66 mcg/dL
== END 2024-12-18 09:03 | disposition home or self-care (01) ==
LOC: HO.LAB 09:02
PROVIDERS: PCP Nurse Practitioner Family; Visit Provider Internal Medicine Hypertension Specialist
DX: Z01.84 Encounter for antibody response examination (principal); E78.5 Hyperlipidemia, unspecified; R80.9 Proteinuria, unspecified; Z87.442 Personal history of urinary calculi
CPT/HCPCS: 80053; 81001; 81003; 82530; 82570; 82784; 84156; 86036; 86038; 86334; 86335

== ENCOUNTER 2024-12-27 09:52 | Outpatient (REF) | payer OTHER, SELFPAY ==
--- NOTE | ~2024-12-27 | US_ITS ---
CLINICAL HISTORY: E78.5 - Hyperlipidemia, unspecified US renal with Color Doppler Comparison: None Findings: Right kidney normal size and echotexture, 10.2 cm length. No hydronephrosis. No renal masses. Normal color flow. Nonobstructing caliceal stone midpole measuring 4 x 3 x 3 mm. Left kidney normal size and echotexture, 10.1 cm length. No hydronephrosis. No renal masses. Normal color flow. Nonobstructing caliceal stones as follows: Upper pole 5 x 3 x 4 mm, midpole 3 x 3 x 2 mm in lower pole 3 x 3 x 5 mm Impression: 1. Bilateral nephrolithiasis. No evidence of hydronephrosis. This document has been electronically signed by: Chris Vasques MD on 12/28/2024 12:54:15
== END 2024-12-27 09:53 | disposition home or self-care (01) ==
LOC: HO.US 09:52
PROVIDERS: PCP Nurse Practitioner Family; Visit Provider Internal Medicine Hypertension Specialist
DX: R80.9 Proteinuria, unspecified (principal); Z87.442 Personal history of urinary calculi; E78.5 Hyperlipidemia, unspecified
CPT/HCPCS: 76775

== ENCOUNTER → 2024-12-27 09:53 | Outpatient (BNV) | payer OTHER, SELFPAY | PROVIDERS: PCP Nurse Practitioner Family; Visit Provider Radiology Diagnostic Radiology | DX: N20.0 Calculus of kidney (principal) | CPT/HCPCS: 76775 ==

== ENCOUNTER 2025-01-04 13:27 | Outpatient (AMB) | payer OTHER, SELFPAY ==
--- NOTE | 2025-01-04 13:29 | HO.NEPHOV ---
Vital Signs 01/04/25 13:30 Height 5 ft 2 in Weight 131 lb BMI 24.0 BP 98/62 Blood Pressure Location Rt brachial Position Sitting Pulse 92 Pulse Source Pulse Oximeter Pulse Oximetry (%) 97 Oxygen Delivery Method Room Air Intake Visit Reasons: 4wks f/u w/labs conf. Retail Performance Coach Required: No Accompanied by: Self / Same As Patient Allergies No Known Allergies Allergy (Verified 01/04/25 13:31) Medication List - Last Reconciled 01/04/25 by Abdias Sifuentes MD atorvastatin (Lipitor) 20 mg PO BEDTIME semaglutide (weight loss) 0.25 mg subcut QWEEK HPI Comments Details: Marge is a pleasant 43-year-old female presenting with elevated Immunoglobulin A (IgA) and concerns regarding kidney function. - Elevated IgA identified two years ago - h/o Chronic sinusitis with frequent infections and deviated septum. - Underwent Emergency gallbladder surgery for gallstones causing pancreatitis four to five years ago. - History of constipation, with rectocele surgery, and recent diarrhea episodes. - Recurrent kidney stones, previously linked to Topamax for migraines. - Hypercholesterolemia, recently started atorvastatin. - h/o Low blood pressure, typically asymptomatic. - [id number] symptoms include nausea and appetite changes. No specific skin lesions or rash. No specific skin lesions or rash. No joint pain swelling. No gross hematuria She has lost significant weight. She is on semaglutide. 01/04/2025. Overall doing well. No specific complaints today. Underwent workup as outlined [facility] Medical History (Updated 11/29/24 @ 12:26 by Karen Rick, [facility]) Shingles Anxiety and depression Headache IBS (irritable bowel syndrome) High cholesterol Hx of mammogram (~2024) Surgical History H/O rectocele repair History of cholecystectomy (~2020) H/O: hysterectomy (~2016) Previous section Hx of colonoscopy (~2015) Family History Mother Asthma HTN (hypertension) High cholesterol Maternal Grandmother HTN (hypertension) High cholesterol Breast cancer Father Lung cancer Social History (Reviewed 01/04/25 @ 13:31 by ASHELY [place] Household Members: Children Both parents involved: No Caregiver staying overnight: No Housing: House Are you a primary hemodialysis patient care specialist to a significant other at home: No Do you presently have visiting nurse or other home services: No 75 years or older and lives alone: No Alcohol intake: current Alcohol intake frequency: a few times a month Patient Tobacco Use Status: Never used Tobacco e-Cigarette/Vaping Use: Never Used Second Hand Smoke Exposure: No Current occupational status: employed Current occupation: Book keeper Cognitive needs: No Hearing needs: No Vision needs: No Physical Exam Vital Signs: Last Vital Signs Pulse 92 01/04/25 13:30 BP 98/62 01/04/25 13:30 Pulse Ox 97 01/04/25 13:30 Oxygen Delivery Method Room Air 01/04/25 13:30 BMI result Body Mass Index 24.0 Const General: comfortable; No acute distress Orientation/consciousness: patient oriented x3 Eyes General: appearance normal, both eyes and all related structures Visual Jewell: normal visual jewell by confrontation Neck Neck: Yes supple and Yes no JVD Resp Effort & Inspection: normal respiratory effort and respiratory effort not decreased Cardio Palpation: no palpable S3 and no palpable S4 Heart sounds: no rubs GI Inspection: Yes normal to inspection Palpation (GI): Soft to palpation Percussion: Yes normal to percussion Auscultation: normal bowel sounds General: Yes no CVA tenderness Back/Spine/Pelvis Back: no CVA tenderness Skin General skin exam: no petechiae and no purpura Neuro General: patient oriented x3 and no focal motor deficits Extrem General: No clubbing and No edema Results Reviewed Nephrology Results: Hgb, (12.0-16.0) 13.1 g/dl 11/02/24 WBC, (4.8-10.8) 7.6 X10*3/uL 11/02/24 Plt Count, (160-400) 304 X10*3/uL 11/02/24 Sodium, (135-145) 143 mmol/L 12/18/24 Potassium, (3.3-5.1) 3.4 mmol/L 12/18/24 Chloride, (96-108) 106 mmol/L 12/18/24 Carbon Dioxide, (22-29) 27 mmol/L 12/18/24 BUN, (9-16) 5 mg/dL L 12/18/24 Creatinine, (0.5-1.4) 0.73 mg/dL 12/18/24 Calcium, (8.4-10.2) 9.4 mg/dL 12/18/24 Urine Protein, (Neg-Trace) Negative mg/dL 12/18/24 Urine Creatinine 116.49 mg/dL 12/18/24 Renal US 12/28/24 Assessment & Plan Assessment & Plan (1) HLD (hyperlipidemia): Code(s): E78.5 - Hyperlipidemia, unspecified Category: Medical (2) Hx of renal calculi: Code(s): Z87.442 - Personal history of urinary calculi Category: Medical (3) Proteinuria: Code(s): R80.9 - Proteinuria, unspecified Category: Medical Plan renal function is normal. h/o. Kidney Stones - Kidney ultrasound showed bilateral renal stones. Workup ordered for nephrolithiasis including a 24 urine collection. Increase p.o. fluid intake Low Blood Pressure - Asymptomatic, Elevated Immunoglobulin A (Iga) - mild elevation in IgA. No significant proteinuria Ferritin is also elevated marginally. Orders: Orders Sodium, 24Hr Urine Group Today Z87.442 - Personal history of urinary calculi Oxalate, 24 Hr Today Z87.442 - Personal history of urinary calculi Citric Acid 24hr Urine Today Z87.442 - Personal history of urinary calculi Creatinine, 24 Hr Group Today Z87.442 - Personal history of urinary calculi Calcium, 24 Hr Ur Today Z87.442 - Personal history of urinary calculi Uric Acid, 24Hr Urine Group Today Z87.442 - Personal history of urinary calculi Coding Level of Care Code Est Pt Level 4 (57020) Diagnoses HLD (hyperlipidemia) E78.5 Hx of renal calculi Z87.442 Proteinuria R80.9
[2025-01-04 13:30] VITALS: BP 98/62; PULSE 92; O2SAT 97; BMI 24.0
== END 2025-01-04 13:54 | disposition home or self-care (01) ==
LOC: HO.HKA 13:29
PROVIDERS: PCP Nurse Practitioner Family; Visit Provider Internal Medicine Hypertension Specialist
DX: E78.5 Hyperlipidemia, unspecified (principal); Z87.442 Personal history of urinary calculi; R80.9 Proteinuria, unspecified
CPT/HCPCS: 99214

== ENCOUNTER 2025-01-06 07:16 | Outpatient (REF) | payer OTHER, SELFPAY ==
[2025-01-06 09:11] LABS: Creatinine, mg/dL 88.92; Sodium, 24 Hr Urine 39.0 mmol/L
[2025-01-06 10:13] LABS: Creatinine, mg/dL 89.00; Uric Acid, mg/dL 23.1 mg/dL
[2025-01-06 10:18] LABS: Total Volume 24 Hour Urine 850 mL
[2025-01-10 21:18] LABS: Calcium/Creatinine Ratio 45 mg/g creat (30-275); Creatinine 24Hr Urine 0.77 g/24 h (0.50-2.15)
[2025-01-12 21:02] LABS: 24hr Urine Total Volume 850 mL; Citric Acid, 24hr Urine 426 mg/24 h (100-1300); Citric Acid/Creat Ratio 24U 538 mg/g creat (180-1070); Creatinine, 24U 0.79 g/24 h (0.50-2.15)
== END 2025-01-06 07:17 | disposition home or self-care (01) ==
LOC: HO.LAB 07:16
PROVIDERS: Visit Provider Internal Medicine Hypertension Specialist
DX: Z87.442 Personal history of urinary calculi (principal)
CPT/HCPCS: 82340; 82507; 83945; 84300; 84560

== ENCOUNTER 2025-01-07 13:33 | Outpatient (AMB) | payer OTHER, SELFPAY ==
--- NOTE | 2025-01-07 14:02 | A.OFFPC_ITS ---
Vital Signs 01/07/25 14:06 Height 5 ft 2 in Weight 131 lb 8 oz BMI 24.0 BP 99/68 Blood Pressure Location Rt brachial Position Sitting Respiration 12 Pulse 92 Pulse Source Pulse Oximeter Temp 97.2 F Temp Source Oral Pulse Oximetry (%) 98 Oxygen Delivery Method Room Air Intake Visit Reasons: med concerns Intake Note: Patient c/o dry mouth, white tongue and cracked px, patient states she feels like if she has hair in her throat. Patient thinks is lipitor. Trade Show Specialist Required: No Allergies No Known Allergies Allergy (Verified 01/07/25 14:02) Medication List - Last Reconciled 01/07/25 by Karen Rick, POLITICAL DIRECTOR-BC atorvastatin (Lipitor) 20 mg PO BEDTIME semaglutide (weight loss) 0.25 mg subcut QWEEK Tobacco use date assessed: 01/07/25 Dental Screening Dental Screen Date: 01/07/25 Did you have a dental visit in the last 12 months?: Yes Did you have a dental problem in the last 6 months where you did not have access to dental care?: No HPI HPI Comments History of Present Illness Details 43 y/o F with elevated IgA, basal cell s kin ca, chronic sinusitis, chronic constipation s/p JUAN CARLOS, rectocle Social: , works as book keeper, 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 - The patient reports onset of tongue pa in starting last week, describing her tongue as having sores, being white, and appearing cracky. - She experiences severe pain, to the po int she could not brush her tongue this morning. - The patient also notes significant xer ostomia, blisters on the inside of her lips, odynophagia when eating food but not saliva, and a loss of taste. - Concurrently, she feels a sensation of hair stuck in her tonsils. - The patient denies rashes on her hands or feet and does not feel generally ill. - She denies any personal history of her pes simplex virus infection. - The patient also mentioned symptoms of a possible yeast infection, but was unsure. Just had CHIEF ULTRASOUND TECHNOLOGIST appt last week and told everything is fine Review of Systems - Constitutional: Denies feeling general ly sick. - HEENT/Mouth: Reports severe tongue niels n, oral sores, a white and cracked appearance of the tongue, and blisters on the inner lips. - Reports xerostomia and dysgeusia. - Reports a sensation of hair in the ton sils and odynophagia with solid food. - Integumentary: Denies rashes on the hameed nds or feet. - Genitourinary: Reports symptoms concer rudolph for a yeast infection, including soreness. Physical Exam General: Well developed, well nourished, in no acute distress. Appears stated age. Head: Normocephalic, atraumatic. Eyes: Pupils are equal, round and reactive to light and accommodation. Conjunctivae are clear. Tongue white coated; tonsils intact w/o exudate, uvula midline, blisters noted inside upper and lower inner lips and on buccal mucosa and on edge of tongue; pharynx clear. Managing secretions. No ac adenopathy Speaking in full sentences Skin of hands clear Medical Decision Making The patient is a 44-year-old female who presents with acute, severe oropharyngeal pain, sores, xerostomia, and odynophagia that started about a week ago. She denies any rash on her hands or feet. The clinical presentation is most consistent with adult hand, foot, and mouth disease, which typically presents with severe oral mucosal involvement without the classic extremity findings seen in children. Other etiologies such as a medication side effect from her statin were considered but deemed unlikely as this is not a reported adverse event. The plan is to treat empirically for a viral etiology with valacyclovir. For symptomatic relief, the patient was offered viscous lidocaine or Maalox and opted for Maalox. I also recommended using sour candies to stimulate salivary glands to help with her xerostomia. The patient was given strict return precautions and options for follow-up if her condition worsens. Plan 1. Hand, Foot, And Mouth Disease Likely - Prescribed valacyclovir (Valtrex) one tablet twice daily for seven days. - Advised the patient to take the medica tion with food. - For symptomatic pain relief, recommend ed using Maalox to swish and swallow three times per day, especially before bed. - Instructed to avoid eating or drinking for 30 minutes after using Maalox to allow it to coat the mucosa. - To manage xerostomia, recommended suck ing on sour candies, such as lemon drops or sour [place], to stimulate saliva production, while avoiding mint or menthol products. - Advised on maintaining normal oral hyg iene without using caustic agents like hydrogen peroxide. - Patient was instructed to seek follow- up at the walk-in clinic or send a portal message if symptoms worsen. Patient Instructions - Take one tablet of Valtrex (valacyclov ir) twice a day for seven days. - Make sure to take the Valtrex with at least a small amount of food to prevent stomach upset. - For mouth pain, use [id number] M aalox. - You should swish the Maalox in your mo uth three times per day. - You can either spit it out or swallow it. - After using Maalox, do not eat or drin k anything for 30 minutes to let it coat your mouth. - To help with dry mouth, suck on sour c andies like lemon drops or sour [place]. - Do not use mints, gum, or anything wit h menthol, as these can make your mouth veneer drier tailer. - Continue brushing your teeth as normal , but do not use harsh products like hydrogen peroxide in your mouth. - If your symptoms get worse, you can vi sit our walk-in clinic in [place] on Friday or send me a message. Consent Patient was informed and verbally consented to the use of an ambient scribe for clinic note documentation during this visit. Total time spent caring for the patient today was 30 minutes. This includes time spent before the visit reviewing the chart, time spent during the visit, and time spent after the visit on documentation, reviewing laboratory results, diagnostic imaging, medications, performing a medically necessary evaluation, counseling on diagnoses, care coordination, ordering appropriate tests, ordering appropriate medications, review of tests performed by other providers, reporting test results with the patient, communication with other healthcare providers. [facility] Medical History (Updated 11/29/24 @ 12:26 by LAUREN Vasquez-) Anxiety and depression Headache High cholesterol Hx of mammogram (~2024) IBS (irritable bowel syndrome) Shingles Surgical History H/O rectocele repair History of cholecystectomy (~2020) H/O: hysterectomy (~2016) Previous section Hx of colonoscopy (~2015) Family History Mother Asthma HTN (hypertension) High cholesterol Maternal Grandmother HTN (hypertension) High cholesterol Breast cancer Father Lung cancer Social History Household Members: Children Both parents involved: No Caregiver staying overnight: No Housing: House Are you a primary manager respiratory care to a significant other at home: No Do you presently have visiting nurse or other home services: No 75 years or older and lives alone: No Alcohol intake: current Alcohol intake frequency: a few times a month Patient Tobacco Use Status: Never used Tobacco e-Cigarette/Vaping Use: Never Used Second Hand Smoke Exposure: No Current occupational status: employed Current occupation: Book keeper Cognitive needs: No Hearing needs: No Vision needs: No Questionnaire Thrive Questionnaire Date Thrive assessed: 10/26/24 I am a: Patient What is your living situation today?: I have a steady place to live Within the past 12 months, did the food you bought not last and you didn't have the money to get more?: Never true Within the past 12 months, did you worry whether your food would run out before you got money to buy more?: Never true Do you have trouble paying for medicines?: No Do you have trouble getting transportation to medical appointments?: No Do you have trouble paying your heating and electricity bill?: No Do you have trouble taking care of your child, family member or friend?: No Do you have trouble with day-to-day activities such as bathing, preparing meals, shopping, managing finances, etc.?: No Are you currently unemployed and looking for a job?: No Are you interested in more education?: No Please select the resources that you would like help with: None Currently or been in a relationship where the following occur: No concerns reported THRIVE Score: 0 NALLELY-7 AMB Questionnaire NALLELY-7 Date NALLELY - 7 assessed: 11/29/24 Source: Developed by Drs. Brady Quintanilla, Eneida Cloud, Miguel Newby and colleagues, with an educational hermann from [employer]. Physical exam (Primary Care) Vital Signs: Last Vital Signs Temp 97.2 F 01/07/25 14:06 Pulse 92 01/07/25 14:06 Resp 12 01/07/25 14:06 BP 99/68 01/07/25 14:06 Pulse Ox 98 01/07/25 14:06 Oxygen Delivery Method Room Air 01/07/25 14:06 BMI result Body Mass Index 24.0 Tobacco/Smoking Status: Tobacco use Status Tobacco use date assessed 01/07/25 01/07/25 14:08 Patient Tobacco Use Status Never used Tobacco 01/07/25 14:08 e-Cigarette/Vaping Use Never Used 01/07/25 14:08 Thrive Assessment: Date of Thrive Assessment Date Thrive assessed 10/26/24 01/07/25 14:08 Currently or been in a relationship where the following occur: No concerns reported Coding Level of Care Code Est Pt Level 4 (80212) Complex EM visit Add On G2211 Diagnoses Hand, foot and mouth disease B08.4 Stomatitis herpetiformis K12.0 Assessment & Plan Assessment & Plan (1) Hand, foot and mouth disease: Code(s): B08.4 - Enteroviral vesicular stomatitis with exanthem (2) 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 Medications: New valacyclovir (Valtrex) 1,000 mg PO BID 14 tabs 0RF
[2025-01-07 14:06] VITALS: BP 99/68; PULSE 92; RESP 12; TEMP 36.2; O2SAT 98; BMI 24.0
== END 2025-01-07 14:39 | disposition home or self-care (01) ==
LOC: HO.HMCFM 13:34
PROVIDERS: PCP Nurse Practitioner Family; Visit Provider Nurse Practitioner Family
DX: B08.4 Enteroviral vesicular stomatitis with exanthem (principal); K12.0 Recurrent oral aphthae